=== PATIENT | female | born 1940 | race Hispanic/Latino ===

== ENCOUNTER 2018-04-30 11:45 | Emergency (ER) | payer OTHER, MEDICARE ==
[~2018-04-30 11:45] MED LIST: ISOS30TA6 PO; METO-409 PO; OMEG100014 PO; PRAV40TA3 PO; RIVA20TA PO; SITA100T12 PO
[2018-04-30 12:53] LABS: CREATININE 0.8 mg/dL (0.5-1.5); POTASSIUM 3.5 mmol/L (3.5-5.1)
[2018-04-30 12:58] LABS: ALBUMIN 3.8 g/dL (3.5-5.0); BILIRUBIN,TOTAL 0.3 mg/dL (0.2-1.0); TOTAL PROTEIN, SERUM 7.9 g/dL (6.0-8.3)
[2018-04-30 13:45] LABS: ERYTHROCYTE SEDIMENTATION RATE 5 MM/HR (0-30)
[2018-04-30 13:51] LABS: BASOPHILS % (AUTO) 0.9 % (0.0-5.0); EOSINOPHILS % (AUTO) 1.4 % (0.0-8.0); LYMPHOCYTES % (AUTO) 40.2 % (21.0-51.0); MEAN CORPUSCULAR HEMOGLOBIN 31.9 pg (27.0-33.0); MEAN CORPUSCULAR HGB CONC 33.2 g/dL (32.0-36.0); MONOCYTES % (AUTO) 10.9 % (3.0-13.0); NEUTROPHILS % (AUTO) 46.6 % (40.0-77.0); NUCLEATED RED BLOOD CELLS 0.3 % (0.0-0.19); PLATELET COUNT (AUTO) 186 K/uL (130-400); RED BLOOD CELL COUNT(AUTO) 4.17 MIL/uL (4.00-5.50); RED CELL DISTRIBUTION WIDTH 14.4 % (11.0-15.5); WHITE BLOOD COUNT (AUTO) 6.9 K/uL (4.8-10.8)
[2018-04-30] MEDS ORDERED: KETOROLAC TROMETHAMINE 15MG/ML ONE (15:20)
[2018-04-30] MEDS ORDERED: DEXAMETHASONE SOD PHOSPHATE 10MG/ML 1ML VIAL ONE (15:20)
== END 2018-04-30 16:10 | disposition home or self-care (01) ==
LOC: EDH 11:45
DX: M54.12 Radiculopathy, cervical region (principal); M25.522 Pain in left elbow; M79.632 Pain in left forearm; E11.9 Type 2 diabetes mellitus without complications; I48.91 Unspecified atrial fibrillation; I10 Essential (primary) hypertension; E78.5 Hyperlipidemia, unspecified; K21.9 Gastro-esophageal reflux disease without esophagitis; M19.90 Unspecified osteoarthritis, unspecified site; Z88.0 Allergy status to penicillin; Z90.49 Acquired absence of other specified parts of digestive tract; Z90.710 Acquired absence of both cervix and uterus
CPT/HCPCS: 36415; 71045; 72125; 80053; 82550; 84484; 85025; 85651; 93005; 96372; 96374; 99284; J1100; J1885

== ENCOUNTER → 2018-10-14 | Outpatient (CLI) | payer OTHER, MEDICARE ==
[~2018-10-14] VITALS: Ht 157.5 cm; Wt 68.5 kg
[~2018-10-14] MED LIST changes: +REGADENOSON 0.4 MG/5 ML PF SYG IVP SCH
== END | disposition home or self-care (01) ==
LOC: SHCH 07:36
PROVIDERS: ATTEND Internal Medicine Cardiovascular Disease
DX: I20.9 Angina pectoris, unspecified (principal); R06.09 Other forms of dyspnea
CPT/HCPCS: 78452; 93017; 96374; A9500 ×2; J2785

== ENCOUNTER → 2020-10-18 | Outpatient (CLI) | payer OTHER, MEDICARE ==
[~2020-10-18] MED LIST changes: -ISOS30TA6 PO; +ISOS30TA92 PO; -REGADENOSON 0.4 MG/5 ML PF SYG IVP SCH
== END | disposition home or self-care (01) ==
LOC: SHCH 10:10
PROVIDERS: ATTEND Internal Medicine Cardiovascular Disease
DX: I73.9 Peripheral vascular disease, unspecified (principal)
CPT/HCPCS: 93925

== ENCOUNTER 2023-12-15 19:58 | Observation (INO) | payer MEDICARE ==
[~2023-12-15] VITALS: Ht 154.9 cm; Wt 64.4 kg
[~2023-12-15 19:58] MED LIST changes: +AMIO200T68 PO; +APIX5TAB PO; +DONE10TA43 PO; +ESCI-8 PO; +ICOS1CAP PO; -ISOS30TA92 PO; +LEVO25CA4 PO; -OMEG100014 PO; -RIVA20TA PO
[2023-12-15 20:42] LABS: BASOPHILS # (AUTO) 0.03 K/uL (0.00-0.20); BASOPHILS % (AUTO) 0.4 % (0.0-5.0); EOSINOPHILS # (AUTO) 0.07 K/uL (0.00-0.70); EOSINOPHILS % (AUTO) 0.8 % (0.0-8.0); HEMATOCRIT 35.9 % (36-48); IMMATURE GRANULOCYTE ABSOLUTE 0.03 K/uL (0-1); LYMPHOCYTES # (AUTO) 2.8 K/uL (1.0-4.8); LYMPHOCYTES % (AUTO) 33.1 % (21.0-51.0); MEAN CORPUSCULAR HEMOGLOBIN 31.8 pg (27.0-33.0); MEAN CORPUSCULAR HGB CONC 33.4 g/dL (32.0-36.0); MEAN CORPUSCULAR VOLUME 95.2 fL (79-99); MONOCYTES # (AUTO) 0.8 K/uL (0.1-1.0); MONOCYTES % (AUTO) 9.2 % (3.0-13.0); NEUTROPHILS # (AUTO) 4.8 K/uL (1.8-7.7); NEUTROPHILS % (AUTO) 56.1 % (40.0-77.0); PLATELET COUNT (AUTO) 199 K/uL (130-400); RED BLOOD CELL COUNT(AUTO) 3.77 MIL/uL (4.00-5.50); RED CELL DISTRIBUTION WIDTH 13.7 % (11.0-15.5); WHITE BLOOD COUNT (AUTO) 8.5 K/uL (4.8-10.8)
[2023-12-15 20:52] LABS: CREATININE 1.1 mg/dL (0.5-1.0); POTASSIUM 3.2 mmol/L (3.5-5.1)
[2023-12-15 21:02] LABS: ALBUMIN 3.6 g/dL (3.5-5.0); BILIRUBIN,TOTAL 0.2 mg/dL (0.2-1.0); MAGNESIUM 1.8 mg/dL (1.80-2.40); TOTAL PROTEIN, SERUM 7.3 g/dL (6.0-8.3)
[2023-12-15] MEDS: NITROGLYCERIN 30 GM TUBE TD SCH (22:15)
[2023-12-15] MEDS: POTASSIUM BICARB/CIT AC 25 MEQ TABLET.EFF PO SCH (22:16)
[2023-12-15] MEDS: NITROGLYCERIN 1GM OINT 1 INCH/1GM TD ONE (22:16)
[2023-12-15] MEDS ORDERED: OMEP40CA21 PO (23:35)
[2023-12-15] MEDS ORDERED: DULO20CA18 PO (23:35)
[2023-12-15] MEDS ORDERED: LOSA50TA64 PO (23:35)
[2023-12-15] MEDS ORDERED: MIRA25TA PO (23:35)
[2023-12-15 23:50] VITALS: BP 144/92; PULSE 74; RESP 19
[2023-12-16 04:00] VITALS: BP 137/66; PULSE 82; RESP 19
[2023-12-16 05:22] LABS: BASOPHILS # (AUTO) 0.05 K/uL (0.00-0.20); BASOPHILS % (AUTO) 0.6 % (0.0-5.0); EOSINOPHILS # (AUTO) 0.07 K/uL (0.00-0.70); EOSINOPHILS % (AUTO) 0.8 % (0.0-8.0); HEMATOCRIT 33.5 % (36-48); IMMATURE GRANULOCYTE ABSOLUTE 0.04 K/uL (0-1); LYMPHOCYTES # (AUTO) 2.8 K/uL (1.0-4.8); LYMPHOCYTES % (AUTO) 34.3 % (21.0-51.0); MEAN CORPUSCULAR HEMOGLOBIN 31.5 pg (27.0-33.0); MEAN CORPUSCULAR HGB CONC 32.8 g/dL (32.0-36.0); MONOCYTES % (AUTO) 11.5 % (3.0-13.0); NEUTROPHILS # (AUTO) 4.3 K/uL (1.8-7.7); NEUTROPHILS % (AUTO) 52.3 % (40.0-77.0); PLATELET COUNT (AUTO) 186 K/uL (130-400); RED BLOOD CELL COUNT(AUTO) 3.49 MIL/uL (4.00-5.50); RED CELL DISTRIBUTION WIDTH 13.9 % (11.0-15.5); WHITE BLOOD COUNT (AUTO) 8.3 K/uL (4.8-10.8)
[2023-12-16 05:53] LABS: CREATININE 0.9 mg/dL (0.5-1.0); POTASSIUM 4.2 mmol/L (3.5-5.1)
[2023-12-16 06:36] LABS: HEMOGLOBIN A1C 6.4 % (4.0-6.0)
[2023-12-16] MEDS: LEVOTHYROXINE 25 MCG TABLET PO SCH (06:37)
[2023-12-16] MEDS: INSULIN HUMULIN R 100 UNIT/ML 3ML SQ SCH (06:40)
[2023-12-16 08:00] VITALS: BP 136/75; PULSE 68; RESP 20
[2023-12-16] MEDS: ASPIRIN 81MG CHEW TAB PO SCH (08:51)
[2023-12-16] MEDS: METOPROLOL SUCCINATE 50 MG TAB.SR.24H PO SCH (08:53)
[2023-12-16] MEDS: LOSARTAN 50 MG TABLET PO SCH (08:53)
[2023-12-16] MEDS: AMIODARONE 200 MG TABLET PO SCH (08:53)
[2023-12-16] MEDS: PANTOPRAZOLE 40 MG TAB DR PO SCH (08:54)
[2023-12-16] MEDS: APIXABAN 5 MG TABLET PO SCH (08:54)
[2023-12-16] MEDS: (Duloxetine HCl 20 MG) PO SCH (08:55)
[2023-12-16] MEDS: (Sitagliptin Phosphate (Januvia) 100 MG) PO SCH (08:56)
[2023-12-16] MEDS: (Mirabegron (Myrbetriq) 25 MG) PO SCH (08:56)
[2023-12-16] MEDS ORDERED: NON-FORMULARY MEDICATION 1 EACH (Escitalopram Oxalate 10 MG) PO SCH (09:00)
[2023-12-16] MEDS ORDERED: ENOXAPARIN SODIUM 40 MG/0.4 ML SYRINGE SQ SCH (09:00)
[2023-12-16 12:00] VITALS: BP 118/79; PULSE 67; RESP 20
[2023-12-16 19:10] VITALS: O2SAT 96
[2023-12-16] MEDS ORDERED: ACETAMINOPHEN 325 MG TAB PO PRN (19:30)
[2023-12-16 20:00] VITALS: BP 136/80; PULSE 73; RESP 18
[2023-12-17] VITALS (8 sets, daily range): BP systolic 124–154; BP diastolic 66–89; PULSE 67–77; RESP 17–20; O2SAT 97
[2023-12-17 05:54] LABS: HEMATOCRIT 33.3 % (36-48); MEAN CORPUSCULAR HEMOGLOBIN 31.3 pg (27.0-33.0); MEAN CORPUSCULAR VOLUME 94.9 fL (79-99); RED BLOOD CELL COUNT(AUTO) 3.51 MIL/uL (4.00-5.50); RED CELL DISTRIBUTION WIDTH 13.8 % (11.0-15.5); WHITE BLOOD COUNT (AUTO) 7.4 K/uL (4.8-10.8)
[2023-12-17 06:15] LABS: CREATININE 0.9 mg/dL (0.5-1.0); MAGNESIUM 1.9 mg/dL (1.80-2.40); POTASSIUM 3.6 mmol/L (3.5-5.1)
[2023-12-17] MEDS: MAGNESIUM 2GM PREMIX 50ML 50 ML IV PRN (06:52)
[2023-12-17] MEDS: KCL 20 MEQ ERTAB PO PRN (06:52)
[2023-12-17] MEDS ORDERED: POTASSIUM CHLORIDE 20MEQ/100ML 100 ML IV PRN (07:00)
[2023-12-17] MEDS ORDERED: POTASSIUM CHLORIDE 10% ELIXIR 20 MEQ/15 ML UDCUP PO PRN (07:00)
[2023-12-17] MEDS: REGADENOSON 0.4 MG/5 ML PF SYG IVP SCH (09:54)
[2023-12-18] VITALS: BP 128/70; PULSE 64; RESP 18
[2023-12-18 04:00] VITALS: BP 118/70; PULSE 64; RESP 18
[2023-12-18 07:30] VITALS: BP 148/94; PULSE 74; RESP 20
[2023-12-18 08:00] VITALS: O2SAT 97
[2023-12-18 11:38] VITALS: BP 119/74; PULSE 71; RESP 20
[2023-12-18] MEDS ORDERED: AEC81 PO (13:54)
== END 2023-12-18 14:45 | disposition still patient (30) ==
LOC: EDH 19:58 → INTOOBSV 22:43 → EDHIP 22:43 → 4DH 23:45
PROVIDERS: ADMIT Internal Medicine Infectious Disease; ATTEND Internal Medicine Infectious Disease
DX: I24.9 Acute ischemic heart disease, unspecified (principal); I12.9 Hypertensive chronic kidney disease with stage 1 through stage 4 chronic kidney disease, or unspecified chronic kidney disease; E11.22 Type 2 diabetes mellitus with diabetic chronic kidney disease; N18.9 Chronic kidney disease, unspecified; E87.6 Hypokalemia; E86.0 Dehydration; E78.00 Pure hypercholesterolemia, unspecified; I48.0 Paroxysmal atrial fibrillation; I25.110 Atherosclerotic heart disease of native coronary artery with unstable angina pectoris; F03.A0 Unspecified dementia, mild, without behavioral disturbance, psychotic disturbance, mood disturbance, and anxiety; D68.59 Other primary thrombophilia; E66.01 Morbid (severe) obesity due to excess calories; Z79.01 Long term (current) use of anticoagulants; Z79.82 Long term (current) use of aspirin; Z90.710 Acquired absence of both cervix and uterus; Z95.5 Presence of coronary angioplasty implant and graft; Z79.899 Other long term (current) drug therapy; Z98.890 Other specified postprocedural states
CPT/HCPCS: 99285; 83735 ×3; 84484 ×5; 80053; 83880; 85025 ×2; 36415 ×3; 71045; 93005; 83036; 80048 ×2; 82948 ×11; 96365; 96366; 85027; 93017; 78452; G0378 ×41; J3475; J2785; A9500 ×2; 96374